=== PATIENT | female | born 1995 | race Caucasian/White ===

== ENCOUNTER 2016-07-02 11:44 | Emergency (ER) | payer MEDICAID ==
[~2016-07-02] VITALS: Ht 162.6 cm; Wt 69.9 kg
[~2016-07-02 11:44] MED LIST: METR-1 PO; PREN1CAP7 PO; TERC0.8C VAGINAL
[2016-07-02 12:48] LABS: BACTERIA, URINE OCC /hpf; BLOOD, URINE MOD (NEG); CALCIUM OXALATE CRYSTALS,URINE FEW /hpf; COMMENT (UR) CULT NOT INDICATED; CULTURE IF INDICATED CULT NOT INDICATED; GLUCOSE,URINE NEG (NEG); KETONE, URINE NEG (NEG); MUCUS URINE FEW /lpf (OCC); NITRITE,URINE NEG (NEG); PH, URINE 6.5 (5.0-8.5); SQUAMOUS EPITHELIAL CELL URINE 1 /hpf (0-5); URINE COLOR YELLOW (YELLW/STRAW)
--- NOTE | 2016-07-02 12:53 | PD ---
HPI Chief Complaint Lower abdominal Pain Date Seen: July 02, 2016 Travel History International Travel<30 Days: No Contact w/Intl Traveler<30Days: No Known Affected Area: No History of Present Illness HPI HPI: This is a 20y/o, at 33w5d who presented to the [facility] with reports of lower abdominal pain, worse when reaching and bending. She denies vaginal bleeding or leakage of fluid with reports of active movements. care at [facility], records reviewed, care complicated by: 1. late entry to care at about 30w, pt initially wanted to abort the ( High dose Vitamin C, " pill" special tea") 2. poor dentition 3. poor social situation 4. limited anatomy scan due to late gestation 5. Alcohol abuse in the beginning of the 6. "pain pills" abuse in the Para: 1 : 2 History Past Medical History Narrative Medical Asthma Obstetric History Obstetric History 02/01/15 40w Male [id number] Past Surgical History Surgical History: No Previous Surgery Family History Family History: Negative Social History Alcohol Use: Yes (during ) Tobacco Use: No Substance Abuse: No Allergies-Medications (Allergen,Severity, Reaction): Coded Allergies: No Known Allergies (Unverified , 06/15/16) Home Meds Active Scripts Terconazole Vaginal Cream 0.8 % Cream1 Appl VAGINAL HS #20 GM Ref 0 For 3 days. Prov:Emely Fletcher CNM [facility] 06/20/16 Metronidazole (Flagyl)500 Mg Rxv402 Mg PO BID #14 TAB Ref 0 Prov:Emely Fletcher CNM [facility] 06/20/16 W/O Vit A W/ Fe Fumar (Citranatal [place])27-1-260 Mg Cap1 Cap PO DAILY #30 CAP Ref 11 Prov:Emely Fletcher CNM [facility] 06/15/16 Review of Systems Except as stated in HPI: all other systems reviewed are Neg Physical Exam Narrative GENERAL: Well-nourished, well-developed patient. SKIN: Warm and dry. HEAD: Normocephalic and atraumatic. EYES: No scleral icterus. No injection or drainage. ENT: No nasal drainage noted. Mucous membranes pink. Airway patent. NECK: Supple, trachea midline. No JVD. CARDIOVASCULAR: Regular rate and rhythm without murmurs, gallops, or rubs. RESPIRATORY: Breath sounds equal bilaterally. No accessory muscle use. BREASTS: Bilateral exam showed no masses , no retractions, no nipple discharge. ABDOMEN/GI: Abdomen soft, non-tender, bowel sounds present, no rebound, no guarding Gravid to [-] weeks size Fundal Height: [-] GENITOURINARY: External Genitalia: intact and normal in appearance BUS glands: [-] Cervix: [-] Dilatation: [-] Effacement: [-] Station: [-] Presentation: [-] Membranes: [intact or ruptured] Uterine Contractions: [-] FHT's: Category: [-] Baseline: [-] Reactive: [-] Variability: [-] Decels: [-] EXTREMITIES: No cyanosis or edema. BACK: Nontender without obvious deformity. No CVA tenderness. NEUROLOGICAL: Awake and alert. Motor and sensory grossly within normal limits. Five out of 5 muscle strength in all muscle groups. Normal speech. Data Data Vital Signs Reviewed: Yes Orders Vital Signs (Adult) .ON ADMISSION (07/02/16 12:32) ^ Labor Status (07/02/16 12:32) Urinalysis - C+S If Indicated (07/02/16 12:32) ^ Non Stress Test (07/02/16 12:32) MDM Medical Record Reviewed: Yes Plan -Pt not currently consuming alcohol -only use tylenol for pain -d/w charge nurse, will obtain hospital resources for the patient Diagnosis Diagnosis: Primary Impression: UTI (urinary tract infection) in in third trimester Disposition: 01 DISCHARGE HOME Condition: Good Scripts Nitrofurantoin Monohydrate Macrocrystals (Macrobid)100 Mg Xun139 Mg PO BID 7 Days Ref 0 Prov:Libia Malone MD 07/02/16 Patient Instructions: Abdominal Pain in (ED) Libia Malone MD July 02, 2016 12:53
[2016-07-02] MEDS ORDERED: MACR100C2 PO (12:59)
[2016-07-02 14:50] LABS: AMPHETAMINE, URINE NEG (NEG); BARBITURATES, URINE NEG (NEG); COCAINE, URINE NEG (NEG)
[2016-07-02 16:58] VITALS: BP 120/67; PULSE 81; RESP 18; TEMP 98.5
[2016-07-07 11:32] LABS: BATH SALTS (MDPV) UR NEG (NEG); ECSTASY (MDMA) UR NEG (NEG); GABAPENTIN UR NEG (NEG); HEROIN (6-ACETYLMORPHINE) UR NEG (NEG); HYDROMORPHONE U NEG (NEG); K2 SPICE UR NEG (NEG); OBMETHADONE UR NEG (NEG); OXYCODONE (PERCODAN) NEG (NEG); PHENCYCLIDINE URINE NEG (NEG)
[2016-07-27] MEDS ORDERED: ACYC400T PO (11:58)
== END 2016-07-02 17:07 | disposition home or self-care (01) ==
LOC: HOBED 11:44
DX: O23.43 Unspecified infection of urinary tract in pregnancy, third trimester (principal); R10.30 Lower abdominal pain, unspecified; Z3A.33 33 weeks gestation of pregnancy
CPT/HCPCS: 80307; 81001; 99284; G0481

== ENCOUNTER 2016-07-27 13:45 | Emergency (ER) | payer MEDICAID, OTHER ==
[~2016-07-27 13:45] MED LIST changes: +ACYC400T PO; -METR-1 PO; -TERC0.8C VAGINAL
[2016-07-27 14:15] VITALS: RESP 18
--- NOTE | 2016-07-27 14:32 | PD ---
HPI Chief Complaint Decreased movement Date Seen: Jul 27, 2016 (Ana Vazquez MD R1) Travel History International Travel<30 Days: No Contact w/Intl Traveler<30Days: No Known Affected Area: No (Ana Vazquez MD R1) History of Present Illness HPI Patient is a 20 year old at 37 and 2/7 weeks gestation by certain LMP , TORI 08/15/16, who presents to the OB ED with reportedly decreased movement and office. She reports decreased movement over the last 2-3 days. She notes that she has not actually done any kick counts. [facility] care [facility] with [facility]. She is accompanied by her aunt. She denies leakage of fluid, vaginal bleeding, and contractions. She feels baby moving regularly. She denies LE/N/V/D/fever/sick contacts/SOB/calf pain/ dizziness/seeing spots. She is HSV positive. She was given acyclovir to take prophylactically, first prescription was given today so she has not started. Of note, patient was seen on 05/09/16 after attempted performed in 2015 at an unknown clinic and has a complicated social situation. IUP noted on US at bedside. Please see OB [facility] notes from 05/09/16 for details. Para: 1 : 2 Last Menstrual Period: Nov 09, 2015 (Ana Vazquez MD R1) History Past Medical History Narrative Medical HSV diagnosed in 2014, denies active lesions Medical History: Denies Significant Hx (Ana Vazquez MD R1) Obstetric History Obstetric History G1: January 2015, male, 8 pounds 12-1/2 ounces, 40 and 2/7 weeks gestation G2: Current. Patient states that she try to abort this fetus at an unknown clinic with 4 pills in December 2015 Initial lab date: June 22, 2016 Blood type: B D (Rh) Type: Negative Antibody screen: negative Rubella: Not immune VDRL: negative Urine screen: Normal HBsAg: negative HIV: negative Chlamydia: negative Gonorrhea: negative TSH: 1.72 Varicella: Negative Visit date: June 22, 2016 Diabetes screen - 1-hr GGT: 133 HIV: Negative Hepatitis B: Negative Visit date: July 12, 2016 Beta strep culture: negative (Ana Vazquez MD R1) Past Surgical History Surgical History: No Previous Surgery (Ana Vazquez MD R1) Family History Narrative Family History Noncontributory (Ana Vazquez MD R1) Social History Alcohol Use: Yes (in first trimester, reportedly last use was in late 2015) Tobacco Use: No Substance Abuse: No (Ana Vazquez MD R1) Allergies-Medications (Allergen,Severity, Reaction): Coded Allergies: No Known Allergies (Unverified , 07/27/16) Home Meds Active Scripts Acyclovir 400 Mg Eud551 Mg PO BID #60 TAB Ref 3 Prov:Shahrzad Anaya ELECTRICAL DISCHARGE MACHINE OPERATOR 07/27/16 W/O Vit A W/ Fe Fumar (Citranatal [place])27-1-260 Mg Cap1 Cap PO DAILY #30 CAP Ref 11 Prov:Emely Fletcher CNM [facility] 06/15/16 Review of Systems Except as stated in HPI: all other systems reviewed are Neg (Ana Vazquez MD R1) Physical Exam BP 100/64, pulse 107, no other VS available Narrative GENERAL: Well-nourished, well-developed female in no apparent distress. SKIN: Warm and dry. No rashes noted. HEAD: Normocephalic and atraumatic. EYES: No scleral icterus. No injection or drainage. ENT: No nasal drainage noted. Mucous membranes pink. Airway patent. NECK: Supple, trachea midline. No JVD. CARDIOVASCULAR: Regular rate and rhythm without murmurs, gallops, or rubs. RESPIRATORY: Breath sounds equal bilaterally. No accessory muscle use. ABDOMEN/GI: Abdomen soft, non-tender, bowel sounds present, no rebound, no guarding Gravid to approximately 35 week size GENITOURINARY: External Genitalia: intact and normal in appearance. There are no evidence of herpetic or other lesions. There is no erythema. Bimanual exam reveals no lesions palpated. Cervix: 3/50%/-2, soft, posterior Presentation: Vertex Membranes: Intact Uterine Contractions: Absent FHT's: Category: 1 Baseline:140 Reactive: yes, to 160 Variability: mod Decels: absent EXTREMITIES: No cyanosis or edema. BACK: Nontender without obvious deformity. No CVA tenderness. NEUROLOGICAL: Awake and alert. Motor and sensory grossly within normal limits. Five out of 5 muscle strength in all muscle groups. Normal speech. (Ana Vazquez MD R1) Data Data Vital Signs Reviewed: Yes Orders Vital Signs (Adult) .ON ADMISSION (07/27/16 14:26) ^ Labor Status (07/27/16 14:26) Urinalysis - C+S If Indicated (07/27/16 14:26) ^ Non Stress Test (07/27/16 14:26) ^ Hydration (07/27/16 14:26) (Ana Vazquez MD R1) MDM Medical Record Reviewed: Yes Narrative Course / MDM 20-year-old female at 37 and 2/7 weeks gestation today. She presented from our office due to decreased movement. -NST -If normal will discharge home -Educate on kick counts -[facility] Plan Discharge from after normal NST (Ana Vazquez MD R1) Diagnosis Diagnosis: Primary Impression: with 37 weeks completed gestation Disposition: 01 DISCHARGE HOME Condition: Stable Patient Instructions: Movement (ED), Early Labor Signs (ED) Attestation Patient seen at bedside. movement counts d/w patient. No complaints. Reports movement prior to discharge. Labor precautions. Keep next scheduled f/u. (Edelmira Ruggiero MD) Ana Vazquez MD R1 Jul 27, 2016 14:32 Edelmira Ruggiero MD Jul 27, 2016 16:05
[2016-07-27 15:43] VITALS: TEMP 98.1
== END 2016-07-27 16:02 | disposition home or self-care (01) ==
LOC: HOBED 13:45
DX: O36.8130 Decreased fetal movements, third trimester, not applicable or unspecified (principal); Z3A.37 37 weeks gestation of pregnancy
CPT/HCPCS: 59025

== ENCOUNTER 2016-07-28 08:26 | Inpatient (IN) | payer MEDICAID, OTHER ==
[2016-07-28] VITALS (49 sets, daily range): BP systolic 74–124; BP diastolic 30–88; PULSE 65–124; RESP 16–20; TEMP 97.7–98.6; O2SAT 100
[2016-07-28] MEDS ORDERED: LACTATED RINGER'S 1000 ML INJ 1,000 ML IV PRN (08:53)
[2016-07-28] MEDS ORDERED: LACTATED RINGER'S 1000 ML INJ 1,000 ML IV SCH (08:53)
--- NOTE | 2016-07-28 08:58 | PD ---
HPI Chief Complaint Gush of fluid this morning Date Seen: Jul 28, 2016 Time Seen: 08:37 (Ana Vazquez MD R1) Travel History International Travel<30 Days: No Contact w/Intl Traveler<30Days: No Known Affected Area: No (Ana Vazquez MD R1) History of Present Illness HPI Patient is a 20 year old at 37 and 3/7 weeks gestation by certain LMP , TORI 08/15/16, who presents to the OB ED with reportedly waking up with a large amount of fluid on her bed at approx 0630 today. OB care is with [facility]. She is accompanied by her aunt. She was seen yesterday 07/27/16 for reported decreased movement, normal NST was obtained and patient was discharged home with counseling. She denies vaginal bleeding and contractions. She feels baby moving regularly. She denies LE/N/V/D/fever/sick contacts/SOB/calf pain/dizziness/seeing spots. She is HSV positive. She was given acyclovir to take prophylactically, has not started prophylaxis, denies current outbreak. Of note, patient was seen on 05/09/16 after attempted performed in 2015 at an unknown clinic and has a complicated social situation. IUP noted on US at bedside. Please see OB [facility] notes from 05/09/16 for details. ( Ana Vazquez MD R1) History Past Medical History Narrative Medical HSV diagnosed 2014, not on acyclovir, not reporting active lesions (Ana Vazquez MD R1) Obstetric History Obstetric History G1: January 2015, male, 8 pounds 12-1/2 ounces, 40 and 2/7 weeks gestation G2: Current. Patient states that she try to abort this fetus at an unknown clinic with 4 pills in December 2015 Initial lab date: June 22, 2016 Blood type: B D (Rh) Type: Negative Antibody screen: negative Rubella: Not immune VDRL: negative Urine screen: Normal HBsAg: negative HIV: negative Chlamydia: negative Gonorrhea: negative TSH: 1.72 Varicella: Negative Visit date: June 22, 2016 Diabetes screen - 1-hr GGT: 133 HIV: Negative Hepatitis B: Negative Visit date: July 12, 2016 Beta strep culture: negative (Ana Vazquez MD R1) Past Surgical History Surgical History: No Previous Surgery (Ana Vazquez MD R1) Family History Narrative Family History Noncontributory (Ana Vazquez MD R1) Social History Alcohol Use: Yes (in first trimester, reportedly last use was in late 2015) Tobacco Use: No Substance Abuse: No (Ana Vazquez MD R1) Allergies-Medications (Allergen,Severity, Reaction): Coded Allergies: No Known Allergies (Unverified , 07/27/16) Home Meds Active Scripts Acyclovir 400 Mg Imw900 Mg PO BID #60 TAB Ref 3 Prov:Shahrzad Anaya LOCAL ANNOUNCER 07/27/16 W/O Vit A W/ Fe Fumar (Citranatal [place])27-1-260 Mg Cap1 Cap PO DAILY #30 CAP Ref 11 Prov:Emely Fletcher CNM [facility] 06/15/16 Review of Systems Except as stated in HPI: all other systems reviewed are Neg (Ana Vazquez MD R1) Physical Exam Narrative GENERAL: Well-nourished, well-developed female in no apparent distress. SKIN: Warm and dry. No rashes noted. HEAD: Normocephalic and atraumatic. EYES: No scleral icterus. No injection or drainage. ENT: No nasal drainage noted. Mucous membranes pink. Airway patent. NECK: Supple, trachea midline. No JVD. CARDIOVASCULAR: Regular rate and rhythm without murmurs, gallops, or rubs. RESPIRATORY: Breath sounds equal bilaterally. No accessory muscle use. ABDOMEN/GI: Abdomen soft, non-tender, bowel sounds present, no rebound, no guarding Gravid to approximately 35 week size GENITOURINARY: External Genitalia: intact and normal in appearance. There are no evidence of herpetic or other lesions. There is no erythema. Bimanual exam reveals no lesions palpated. Cervix: 4/50%/-3, soft, posterior, clear fluid in vaginal vault Presentation: Vertex Membranes: ROM, Amnisure positive Uterine Contractions: Absent FHT's: Category: 1 Baseline:150 Reactive: yes, to 165 Variability: mod Decels: absent EXTREMITIES: No cyanosis or edema. BACK: Nontender without obvious deformity. No CVA tenderness. NEUROLOGICAL: Awake and alert. Motor and sensory grossly within normal limits. Five out of 5 muscle strength in all muscle groups. Normal speech. (Ana Vazquez MD R1) Data Data Vital Signs Reviewed: Yes (BP 99/53, P124, RR 16, temp 98.1F) (Ana Vazquez MD R1) MDM Medical Record Reviewed: Yes Narrative Course / MDM 20-year-old female at 37 and 3/7 weeks gestation who presents with SROM at 0630 on 07/28/16. Amnisure positive, clear vaginal fluid on exam. We will admit to L&D for labor. Intrauterine : Category 1 tracing Vaginal delivery expected SROM at 0630 Will monitor on continuous toco and FHT, start Pitocin as indicated Epidural is desired for pain CBC, UA ordered in addition to type and screen and blood typing IV fluids per routine Monitor heart tones Routine care GBS negative HSV positive No current outbreaks No prophylaxis given this DW Dr. Ruggiero (Ana Vazquez MD R1) Attestation Patient seen and examined. Agree with resident's assessment and plan. (Edelmira Ruggiero MD) Ana Vazquez MD R1 Jul 28, 2016 08:58 Edelmira Ruggiero MD Jul 28, 2016 09:39
[2016-07-28] MEDS ORDERED: SODIUM CHLORID 0.9% 500 ML INJ 500 ML IV PRN (09:00)
[2016-07-28] MEDS ORDERED: OXYTOCIN 30 UNITS-500ML PREMIX 500 ML IV ONE ×2 (09:00→18:45)
[2016-07-28] MEDS ORDERED: ONDANSETRON HCL 4 MG/2 ML VIAL IV PRN (09:00)
[2016-07-28] MEDS ORDERED: MINERAL OIL 10 ML VIAL TOPICAL PRN (09:00)
[2016-07-28] MEDS ORDERED: CITRIC ACID-SODIUM CITRATE LIQ 30 ML UDC PO SCH (09:00)
[2016-07-28] MEDS ORDERED: LIDOCAINE HCL 1% 50 ML VIAL INFIL PRN (09:00)
[2016-07-28] MEDS ORDERED: LIDOCAINE HCL 1% 50 ML VIAL I-DERMAL PRN (09:00)
--- NOTE | 2016-07-28 09:05 | HHI.HP ---
HPI Chief Complaint SROM at 0630 on 07/28/16 Date Seen: Jul 28, 2016 Time Seen: 09:01 (Ana Vazquez MD R1) Travel History International Travel<30 Days: No Contact w/Intl Traveler<30Days: No Known Affected Area: No (Ana Vazquez MD R1) History of Present Illness HPI Patient is a 20 year old at 37 and 3/7 weeks gestation by certain LMP , TORI 08/15/16, who presents to the OB ED with reportedly waking up with a large amount of fluid on her bed at approx 0630 today. [facility] care is with [facility]. She is accompanied by her aunt. She was seen yesterday 07/27/16 for reported decreased movement, normal NST was obtained and patient was discharged home with counseling. She denies vaginal bleeding and contractions. She feels baby moving regularly. She denies LE/N/V/D/fever/sick contacts/SOB/calf pain/dizziness/seeing spots. She is HSV positive. She was given acyclovir to take prophylactically, has not started prophylaxis, denies current outbreak. Of note, patient was seen on 05/09/16 after attempted performed in 2015 at an unknown clinic and has a complicated social situation. IUP noted on US at bedside. Please see OB [facility] notes from 05/09/16 for details. Para: 1 : 2 Last Menstrual Period: Nov 08, 2016 (Ana Vazuqez MD R1) History Past Medical History Narrative Medical HSV diagnosed 2014, not on acyclovir, not reporting active lesions History of asthma, not on albuterol (last use over one year ago) (Ana Vazquez MD R1) Obstetric History Obstetric History G1: January 2015, male, 8 pounds 12-1/2 ounces, 40 and 2/7 weeks gestation G2: Current. Patient states that she try to abort this fetus at an unknown clinic with 4 pills in December 2015 Initial lab date: June 22, 2016 Blood type: B D (Rh) Type: Negative Antibody screen: negative Rubella: Not immune VDRL: negative Urine screen: Normal HBsAg: negative HIV: negative Chlamydia: negative Gonorrhea: negative TSH: 1.72 Varicella: Negative Visit date: June 22, 2016 Diabetes screen - 1-hr GGT: 133 HIV: Negative Hepatitis B: Negative Visit date: July 12, 2016 Beta strep culture: negative (Ana Vazquez MD R1) Past Surgical History Surgical History: No Previous Surgery (Ana Vazquez MD R1) Family History Narrative Family History Noncontributory (Ana Vazquez MD R1) Social History Alcohol Use: Yes (reported last use in late 2015) Tobacco Use: No Substance Abuse: No (Ana Vazquez MD R1) Allergies-Medications (Allergen,Severity, Reaction): Coded Allergies: No Known Allergies (Unverified , 07/27/16) Home Meds Active Scripts Acyclovir 400 Mg Bby952 Mg PO BID #60 TAB Ref 3 Prov:Shahrzad Anaya CUT OUT STITCHER 07/27/16 W/O Vit A W/ Fe Fumar (Citranatal [place])27-1-260 Mg Cap1 Cap PO DAILY #30 CAP Ref 11 Prov:Emely Fletcher CNM [employer] 06/15/16 Review of Systems Except as stated in HPI: all other systems reviewed are Neg (Ana Vazquez MD R1) Physical Exam Vital Signs Date Time Temp Pulse Resp B/P Pulse Ox O2 Delivery O2 Flow Rate FiO2 07/28/16 08:41 124 16 99/53 07/28/16 08:41 98.1 Narrative GENERAL: Well-nourished, well-developed female in no apparent distress. SKIN: Warm and dry. No rashes noted. HEAD: Normocephalic and atraumatic. EYES: No scleral icterus. No injection or drainage. ENT: No nasal drainage noted. Mucous membranes pink. Airway patent. Significant dental caries noted on multiple teeth, no signs of gum infection NECK: Supple, trachea midline. No JVD. CARDIOVASCULAR: Regular rate and rhythm without murmurs, gallops, or rubs. RESPIRATORY: Breath sounds equal bilaterally. No accessory muscle use. ABDOMEN/GI: Abdomen soft, non-tender, bowel sounds present, no rebound, no guarding Gravid to approximately 35 week size GENITOURINARY: External Genitalia: intact and normal in appearance. There are no evidence of herpetic or other lesions. There is no erythema. Bimanual exam reveals no lesions palpated. Cervix: 4/50%/-3, soft, posterior, clear fluid in vaginal vault Presentation: Vertex Membranes: ROM, Amnisure positive Uterine Contractions: Absent FHT's: Category: 1 Baseline:150 Reactive: yes, to 165 Variability: mod Decels: absent EXTREMITIES: No cyanosis or edema. BACK: Nontender without obvious deformity. No CVA tenderness. NEUROLOGICAL: Awake and alert. Motor and sensory grossly within normal limits. Five out of 5 muscle strength in all muscle groups. Normal speech. (Ana Vazquez MD R1) Data Data Vital Signs Reviewed: Yes (BP 99/53, P124, RR 16, temp 98.1F) Orders Vital Signs (Adult) .ON ADMISSION (07/28/16 08:38) ^ Labor Status (07/28/16 08:38) ^ Non Stress Test (07/28/16 08:38) ^ Hydration (07/28/16 08:38) Ob (2e) Additional Admit Info (07/28/16 08:46) Admit To Inpatient (07/28/16 ) Code Status (07/28/16 08:53) Vital Signs (Adult) .Per protocol (07/28/16 08:53) Activity Oob Ad Jo (07/28/16 08:53) Heart (07/28/16 08:53) Amnioinfusion (07/28/16 08:53) Urinary Catheter Management .ONCE (07/28/16 08:53) Diet Liquid (07/28/16 Breakfast) Lactated Ringer's 1000 Ml Inj (Lr 1000 M (07/28/16 08:53) Lactated Ringer's 1000 Ml Inj (Lr 1000 M (07/28/16 08:53) Sodium Chlorid 0.9% 500 Ml Inj (Ns 500 M (07/28/16 09:00) Sodium Chlor 0.9% 1000 Ml Inj (Ns 1000 M (07/28/16 09:13) Lidocaine 1% Inj (50 Ml) (Xylocaine 1% I (07/28/16 09:00) Citric Acid-Sodium Citrate Liq (Bicitra (07/28/16 09:00) Ondansetron Inj (Zofran Inj) (07/28/16 09:00) Fentanyl Inj (Fentanyl Inj) (07/28/16 09:00) Fentanyl Inj (Fentanyl Inj) (07/28/16 09:00) Complete Blood Count With Diff (07/28/16 08:53) Hold Clot (07/28/16 08:53) Abo/Rh Blood Type (07/28/16 08:53) Urinalysis - C+S If Indicated (07/28/16 08:53) Type And Screen (07/28/16 08:53) Resp Oxygen Non Rebreathe Mask (07/28/16 ) ^ Epidural / Intrathecal Infus (07/28/16 08:53) Oxytocin 30 Units-500ml Premix (Pitocin (07/28/16 09:00) Lidocaine 1% Inj (50 Ml) (Xylocaine 1% I (07/28/16 09:00) Light Mineral Oil (Muri-Lube Oil) (07/28/16 09:00) Inpatient Certification (07/28/16 ) Specimen To Be Collected PRN (07/28/16 08:53) (Ana Vazquez MD R1) Assessment/Plan Problem List: (1) with 37 weeks completed gestation (2) Rupture of membranes with clear amniotic fluid (3) HSV-2 infection complicating (4) Dental caries (5) History of asthma Assessment and Plan 20-year-old female at 37 and 3/7 weeks gestation who presents with SROM at 0630 on 07/28/16. Amnisure positive, clear vaginal fluid on exam. We will admit to L&D for labor. Intrauterine : Category 1 tracing Vaginal delivery expected SROM at 0630 Will monitor on continuous toco and FHT, start Pitocin as indicated Epidural is desired for pain CBC, UA ordered in addition to type and screen and blood typing IV fluids per routine Monitor heart tones Routine care GBS negative HSV positive No current outbreaks No prophylaxis given this History of asthma No use of albuterol in over 1 year Will monitor DW Dr. Ruggiero Discharge Planning 1-2 days after normal vaginal delivery, 2-3 days after delivery if indicated (Ana Vazquez MD R1) Attending Attestation Patient seen and examined. Plan and management d/w patient. All questions answered. (Edelmira Ruggiero MD) Ana Vazquez MD R1 Jul 28, 2016 09:05 Edelmira Ruggiero MD Jul 28, 2016 09:38
[2016-07-28] MEDS ORDERED: SODIUM CHLOR 0.9% 1000 ML INJ 1,000 ML IV PRN (09:13)
[2016-07-28 09:56] LABS: BLOOD, URINE NEG (NEG); COMMENT (UR) CULT NOT INDICATED; CULTURE IF INDICATED CULT NOT INDICATED; GLUCOSE,URINE NEG (NEG); KETONE, URINE NEG (NEG); NITRITE,URINE NEG (NEG); SQUAMOUS EPITHELIAL CELL URINE <1 /hpf (0-5); URINE COLOR YELLOW (YELLW/STRAW)
[2016-07-28 10:27] LABS: AUTOMATED NEUTROPHIL # 8.7 TH/MM3 (1.8-7.7); BASOPHIL % 0.3 % (0.0-2.0); EOSINOPHIL # 0.1 TH/MM3 (0-0.4); EOSINOPHIL % 0.6 % (0.0-4.0); HEMATOCRIT 34.2 % (35.0-46.0); HEMO FLAGS DIFF FINAL; LYMPH % 22.7 % (9.0-44.0); LYMPHOCYTE # 2.8 TH/MM3 (1.0-4.8); MEAN CELL VOLUME 92.7 FL (80.0-100.0); MEAN CORPUSCULAR HEMOGLOBIN 31.5 PG (27.0-34.0); MEAN CORPUSCULAR HGB CONC 33.9 % (32.0-36.0); MONO % 5.4 % (0.0-8.0); PLATELET COUNT 233 TH/MM3 (150-450); RED BLOOD COUNT 3.69 MIL/MM3 (4.00-5.30); RED CELL DISTRIBUTION WIDTH 12.6 % (11.6-17.2); WHITE BLOOD COUNT 12.2 TH/MM3 (4.0-11.0)
[2016-07-28] MEDS ORDERED: OXYTOCIN 30 UNITS-500ML PREMIX 500 ML IV SCH (10:30)
--- NOTE | 2016-07-28 13:56 | PD.LABORPN ---
Subjective Subjective Patient was evaluated at bedside. She is feeling some ctx but they are not uncomfortable and she is not yet interested in epidural. Pitocin now on 6mU/ min. No new symptoms or complaints. (Ana Vazquez MD R1) Objective Vital Signs Vital Signs Date Time Temp Pulse Resp B/P Pulse Ox O2 Delivery O2 Flow Rate FiO2 07/28/16 13:13 71 99/57 07/28/16 13:00 74 74/30 07/28/16 12:57 97.7 07/28/16 12:56 73 98/57 07/28/16 12:55 16 07/28/16 12:36 16 07/28/16 12:30 76 101/61 07/28/16 12:26 74 108/58 07/28/16 12:10 16 07/28/16 11:49 18 07/28/16 11:48 78 101/63 07/28/16 09:49 98.0 07/28/16 09:48 20 07/28/16 09:48 94 104/64 07/28/16 08:41 124 16 99/53 07/28/16 08:41 98.1 Objective Pelvic Exam: Cervix: 4-5/50%/-3 Presentation: vertex Membranes: SROM @ 0630 on 07/28/16 Uterine Contractions: q3-4min FHT's: Category: 1 Baseline: 140 Reactive: y to 155 Variability: mod Decels: absent (Ana Vazquez MD R1) Assessment/Plan Problem List: (1) with 37 weeks completed gestation (2) Rupture of membranes with clear amniotic fluid (3) HSV-2 infection complicating (4) Dental caries (5) History of asthma Assessment and Plan 20-year-old female at 37 and 3/7 weeks gestation who presents with SROM at 0630 on 07/28/16. Amnisure positive, clear vaginal fluid on exam. We will admit to L&D for labor. Intrauterine : Category 1 tracing Vaginal delivery expected SROM at 0630 Will monitor on continuous toco and FHT Continue Pitocin at 03/24/29 Epidural is desired for pain CBC, UA unremarkable Blood type is B negative IV fluids per routine Monitor heart tones Routine care GBS negative HSV positive No current outbreaks No prophylaxis given this History of asthma No use of albuterol in over 1 year Will monitor (Ana Vazquez MD R1) Assessment and Plan PROM @ 37 weeks GBS negative CAT I FHT Pitocin augmentation decline pain medication/epidural at this time (Maryjane Sanderson MD) Ana Vazquez MD R1 Jul 28, 2016 13:56 Maryjane Sanderson MD Jul 28, 2016 17:34
[2016-07-28] MEDS ORDERED: MEASLES, MUMPS, RUBELLA VACCINE 0.5 ML VIAL SQ ONE (16:00)
[2016-07-28] MEDS ORDERED: DIPHTH/TETANUS/ACEL PERTUSSIS (BOOSTER) 0.5 ML VIAL/PFS IM ONE (16:00)
[2016-07-28] MEDS ORDERED: fentaNYL 2MCG-BUPIV 0.125% INJ 100 ML ONE (16:15)
[2016-07-28] MEDS ORDERED: ePHEDrine/NS 25 MG/5 ML SYR ONE (16:15)
--- NOTE | 2016-07-28 16:43 | PD.LABORPN ---
Subjective Subjective Patient was evaluated at bedside and is uncomfortable during her ctx. She wants an epidural. Pitocin now on 12mU/min. (Ana Vazquez MD R1) Objective Vital Signs Vital Signs Date Time Temp Pulse Resp B/P Pulse Ox O2 Delivery O2 Flow Rate FiO2 07/28/16 15:33 97.8 83 18 89/54 07/28/16 15:30 78 100 07/28/16 15:01 75 100/56 07/28/16 15:00 86 07/28/16 15:00 81 07/28/16 14:19 116 124/88 07/28/16 14:18 16 07/28/16 13:13 71 99/57 07/28/16 13:00 74 74/30 07/28/16 12:57 97.7 07/28/16 12:56 73 98/57 07/28/16 12:55 16 07/28/16 12:36 16 07/28/16 12:30 76 101/61 07/28/16 12:26 74 108/58 07/28/16 12:10 16 07/28/16 11:49 18 07/28/16 11:48 78 101/63 07/28/16 09:49 98.0 07/28/16 09:48 20 07/28/16 09:48 94 104/64 07/28/16 08:41 124 16 99/53 07/28/16 08:41 98.1 Objective Pelvic Exam: Cervix: 5/80%/0 Presentation: vertex Membranes: SROM @ 0630 on 07/28/16 Uterine Contractions: q3-4min, getting epidural FHT's: Category: 2 Baseline: 130 Reactive: y to 155 Variability: mod Decels: occasional variable (Ana Vazquez MD R1) Assessment/Plan Problem List: (1) with 37 weeks completed gestation Plan: 20-year-old female at 37 and 3/7 weeks gestation admitted to L&D for labor after SROM at home (0630 on 07/28/16) Intrauterine : Amnisure positive Category 1 tracing Vaginal delivery expected SROM at 0630 on 07/28/16, no clear fluid Will monitor on continuous toco and FHT Continue Pitocin at 03/24/29 Epidural being placed now CBC, UA unremarkable Blood type is B negative IV fluids per routine Monitor heart tones Routine care GBS negative HSV positive No current outbreaks No prophylaxis given this History of asthma No use of albuterol in over 1 year Will monitor (2) Rupture of membranes with clear amniotic fluid (3) HSV-2 infection complicating (4) Dental caries (5) History of asthma (Ana Vazquez MD R1) Assessment and Plan PROM @ 37 weeks Pitocin augmentation Patient uncomfortable with UC, requests epidural SVE 5-6/80/0 CAT I FHT Continue current management. (Maryjane Sanderson MD) Ana Vazquez MD R1 Jul 28, 2016 16:43 Maryjane Sanderson MD Jul 28, 2016 17:35
--- NOTE | 2016-07-28 17:26 | PD.OB.DELI ---
Anesthesia: Epidural (apply ) Episiotomy: None Vaginal Delivery: Normal Presentation: Occiput anterior Nuchal Cord: x1 Delayed cord clamping (45 sec): No Infant: Female One Minute : 8 Five Minute : 9 Weight: 6lb 10z Placenta: Spontaneous delivery, Intact, 3 vessel cord Laceration: No lacerations (superficial vaginal wall scrapes) Additional Information 20 y/o now P2 experienced over intact perineum on 07/28/16. The 's head was delivered in a controlled manner. Amniotic fluid was clear. Nuchal cord x 1 was noted. The 's body was then delivered in the usual manner without difficulty. The cord was clamped and cut. The infant was handed to nursein attendance. The placenta delivered intact with 3VC followed by 30 units of Pitocin IV and uterine massage for hemostasis. EBL= 150cc. The cervix and vagina were inspected for lacs and none were noted. The , viable female with Apgars 8/9 and weight g was left in mother's room in stable condition. Average EBL for is 500cc. Attending physician was Dr. Sanderson who was present and scrubbed in for entire delivery. (Ana Vazquez MD R1) Weight: 3005g Additional Information @ 37 weeks with PROM, clear fluid at term. Pitocin augmented. Epidural for anesthesia. Uncomplicated with nuchal x 1, reduced. Placenta spontaneous, intact and grossly normal. EBL 150ml. No lacerations for repair. (Maryjane Sanderson MD) Ana Vazquez MD R1 Jul 28, 2016 17:26 Maryjane Sanderson MD Jul 28, 2016 17:37
[2016-07-28] MEDS ORDERED: BENZOCAINE 20% TOPICAL SPRAY 60 ML CAN TOPICAL PRN (17:30)
[2016-07-28] MEDS ORDERED: ONDANSETRON ODT 4 MG TAB PO PRN (17:30)
[2016-07-28] MEDS ORDERED: DOCUSATE SODIUM 50 MG/SENNA 8.6 MG TAB PO PRN (17:30)
[2016-07-28] MEDS ORDERED: SODIUM CHLORIDE 0.9% FLUSH 10 ML FLUSH IV FLUSH PRN (17:30)
[2016-07-28] MEDS ORDERED: ALUMINUM/MAGNESIUM/SIMETH 30 ML CUP PO PRN (17:30)
[2016-07-28] MEDS ORDERED: WITCH HAZEL 50%/GLYCERIN 12.5% 40 PAD JAR TOPICAL PRN (17:30)
[2016-07-28] MEDS ORDERED: OXYTOCIN 30 UNITS-500ML PREMIX 500 ML ONE (18:33)
[2016-07-28] MEDS: IBUPROFEN 600 MG TAB PO PRN (18:50)
--- NOTE | 2016-07-28 19:41 | HHI.PR ---
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 Patient had not voided. Straight cath with 1000ml of urine Second bag of Pitocin given Re-examined - RN stated noted clot on pad Uterus remains firm @ U-2 continue observation, Cytotec if any further bleeding Maryjane Sanderson MD Jul 28, 2016 19:41
[2016-07-28] MEDS ORDERED: SODIUM CHLORIDE 0.9% FLUSH 10 ML FLUSH IV FLUSH SCH (21:00)
[2016-07-29] MEDS: ACETAMINOPHEN 325 MG TAB PO PRN ×3 (06:15→22:49)
[2016-07-29 07:08] LABS: AUTOMATED NEUTROPHIL # 10.7 TH/MM3 (1.8-7.7); BASOPHIL # 0.1 TH/MM3 (0-0.2); BASOPHIL % 0.5 % (0.0-2.0); EOSINOPHIL # 0.1 TH/MM3 (0-0.4); EOSINOPHIL % 0.7 % (0.0-4.0); HEMATOCRIT 33.3 % (35.0-46.0); HEMO FLAGS DIFF FINAL; LYMPH % 25.2 % (9.0-44.0); MEAN CELL VOLUME 92.7 FL (80.0-100.0); MEAN CORPUSCULAR HEMOGLOBIN 31.6 PG (27.0-34.0); MEAN CORPUSCULAR HGB CONC 34.1 % (32.0-36.0); NEUT % 66.6 % (16.0-70.0); PLATELET COUNT 212 TH/MM3 (150-450); RED BLOOD COUNT 3.59 MIL/MM3 (4.00-5.30); RED CELL DISTRIBUTION WIDTH 12.3 % (11.6-17.2)
--- NOTE | 2016-07-29 07:08 | HHI.OB ---
Subjective Post Day: 1 Remarks day # 1. AFVSS overnight. She had post- increased bleeding approximate 1730pm, several clots expressed. Patient had not voided so straight cath was placed and 1L urine noted , which was likely etiology. Second bag of Pitocin given and exam was thereafter notable for firm uterus. Patient does note moderate bleeding this morning, like a period. Denies dysuria. No breast tenderness. She is feeding the baby via breast. Appetite good. No nausea or vomiting. Positive flatus/bowel movement. Ambulating well. Denies calf pain or shortness of breath. Otherwise, she is doing well this morning and has no other complaints. (Ana Vazquez MD R1) Objective Vitals/I&O Vital Signs Date Time Temp Pulse Resp B/P Pulse Ox O2 Delivery O2 Flow Rate FiO2 07/28/16 22:21 98.0 68 16 99/59 07/28/16 20:00 72 113/56 07/28/16 19:45 86 109/53 07/28/16 19:30 75 104/51 07/28/16 19:15 65 109/64 07/28/16 19:00 66 103/68 07/28/16 18:45 84 110/65 07/28/16 18:42 98.6 85 106/73 07/28/16 18:41 18 07/28/16 18:30 72 07/28/16 18:30 18 07/28/16 18:15 72 102/49 07/28/16 18:01 75 18 100/53 07/28/16 17:47 18 07/28/16 17:45 78 108/62 07/28/16 17:45 18 07/28/16 17:30 84 105/65 07/28/16 17:26 90 110/76 07/28/16 16:59 109/59 07/28/16 16:59 83 07/28/16 16:55 97 07/28/16 16:53 101 120/67 07/28/16 16:50 105 07/28/16 16:45 101 07/28/16 16:40 103 07/28/16 16:39 95 100/53 07/28/16 16:35 87 07/28/16 16:30 95 07/28/16 16:25 91 07/28/16 16:20 84 07/28/16 16:17 81 101/57 07/28/16 16:15 78 07/28/16 15:33 97.8 83 18 89/54 07/28/16 15:30 78 100 07/28/16 15:01 75 100/56 07/28/16 15:00 86 07/28/16 15:00 81 07/28/16 14:19 116 124/88 07/28/16 14:18 16 07/28/16 13:13 71 99/57 07/28/16 13:00 74 74/30 07/28/16 12:57 97.7 07/28/16 12:56 73 98/57 07/28/16 12:55 16 07/28/16 12:36 16 07/28/16 12:30 76 101/61 07/28/16 12:26 74 108/58 07/28/16 12:10 16 07/28/16 11:49 18 07/28/16 11:48 78 101/63 07/28/16 09:49 98.0 07/28/16 09:48 20 07/28/16 09:48 94 104/64 07/28/16 08:41 124 16 99/53 07/28/16 08:41 98.1 Objective Remarks GENERAL: Well-nourished, well-developed female in no apparent distress. CARDIOVASCULAR: Regular rate and rhythm without murmurs, gallops, or rubs. RESPIRATORY: Breath sounds equal bilaterally. No accessory muscle use. ABDOMEN/GI: Abdomen soft, non-tender. Fundus: Firm, non-tender at umbilicus. GENITOURINARY: Light to moderate bleeding. EXTREMITIES: No cyanosis or edema, non-tender, without signs of DVT. Medications and IVs Current Medications Medications (Trade) Dose Ordered Sig/Freddy Route Start Time Stop Time Status Last Admin (NS Flush) 2 ml BID IV FLUSH 07/28/16 21:00 (NS Flush) 2 ml UNSCH PRN IV FLUSH 07/28/16 17:30 (Tylenol) 650 mg Q4H PRN PO 07/28/16 17:30 07/29/16 06:15 (Motrin) 600 mg Q6H PRN PO 07/28/16 17:30 07/28/16 18:50 (Americaine 20% Top Spr) 1 spray Q4H PRN TOPICAL 07/28/16 17:30 (Tucks Pads) 1 applic QID PRN TOPICAL 07/28/16 17:30 (Jennifer-Colace) 2 tab Q12H PRN PO 07/28/16 17:30 (Mag-Al Plus Susp Liq) 15 ml Q8H PRN PO 07/28/16 17:30 (Zofran Odt) 4 mg Q6H PRN PO 07/28/16 17:30 (Ana Vazquez MD R1) Assessment/Plan Problem List: (1) Term delivered vaginally, current hospitalization Plan: 20-year-old female who is PPD #1 after . Intrauterine , delivered by -Continue routine care. -Tylenol and Motrin PRN pain. -Encouraged OOB. Advised pelvic rest for 6 wks. -Re: ctrl, she would like Mirena vs. Nexplanon at 6 weeks -D/c likely tomorrow (2) HSV-2 infection complicating Plan: No current outbreaks No prophylaxis given this (3) Dental caries (4) History of asthma Plan: No use of albuterol in over 1 year Will monitor Assessment and Plan DW Dr. Sanderson Discharge Planning 1-2 days after normal vaginal delivery, 2-3 days after delivery if indicated (Ana Vazquez MD R1) Attending Attestation PPD #1 s/p Doing well Tylenol and Motrin for cramping/pain No further bleeding, hgb unchanged. continue PP care and observation anticipate d/c in am Patient seen and examined. D/w Dr. Prince and Dr. Vazquez. (Maryjane Sanderson MD) Ana Vazquez MD R1 Jul 29, 2016 07:07 Maryjane Sanderson MD Jul 29, 2016 08:20 HSV positive No current outbreaks No prophylaxis given this History of asthma No use of albuterol in over 1 year Will monitor DW Dr. Ruggiero Discharge Planning 1-2 days after normal vaginal delivery, 2-3 days after delivery if indicated Ana Vazquez MD R1 Jul 29, 2016 07:07
[2016-07-29 09:00] VITALS: BP 91/55; PULSE 64; RESP 20; TEMP 97.4
[2016-07-29 19:33] VITALS: BP 88/57; PULSE 77; RESP 17; TEMP 97.6
--- NOTE | 2016-07-30 07:39 | HHI.OB ---
Subjective Post Day: 2 Remarks day # 2. AFVSS overnight. Pain control. Decreased lochia. Denies dysuria. No breast tenderness. She is feeding the baby via breast. Appetite good. No nausea or vomiting. Positive flatus. Negative bowel movement. Ambulating well. Denies calf pain, shortness of breath, or cough. Otherwise, she is doing well this morning and has no other complaints. Objective Vitals/I&O Vital Signs Date Time Temp Pulse Resp B/P Pulse Ox O2 Delivery O2 Flow Rate FiO2 07/29/16 19:33 97.6 17 07/29/16 19:33 77 88/57 07/29/16 09:00 91/55 07/29/16 09:00 97.4 64 20 Objective Remarks GENERAL: Well-nourished, well-developed female in no apparent distress. CARDIOVASCULAR: Regular rate and rhythm without murmurs, gallops, or rubs. RESPIRATORY: Breath sounds equal bilaterally. No accessory muscle use. ABDOMEN/GI: Abdomen soft, non-tender. Fundus: Firm, non-tender at umbilicus. GENITOURINARY: Light to moderate bleeding. EXTREMITIES: No cyanosis or edema, non-tender, without signs of DVT. Medications and IVs Current Medications Medications (Trade) Dose Ordered Sig/Freddy Route Start Time Stop Time Status Last Admin (NS Flush) 2 ml BID IV FLUSH 07/28/16 21:00 (NS Flush) 2 ml UNSCH PRN IV FLUSH 07/28/16 17:30 (Tylenol) 650 mg Q4H PRN PO 07/28/16 17:30 07/29/16 22:49 (Motrin) 600 mg Q6H PRN PO 07/28/16 17:30 07/28/16 18:50 (Americaine 20% Top Spr) 1 spray Q4H PRN TOPICAL 07/28/16 17:30 (Tucks Pads) 1 applic QID PRN TOPICAL 07/28/16 17:30 (Jennifer-Colace) 2 tab Q12H PRN PO 07/28/16 17:30 (Mag-Al Plus Susp Liq) 15 ml Q8H PRN PO 07/28/16 17:30 (Zofran Odt) 4 mg Q6H PRN PO 07/28/16 17:30 Assessment/Plan Problem List: (1) Term delivered vaginally, current hospitalization (2) HSV-2 infection complicating Plan: No current outbreaks No prophylaxis given this (3) Dental caries (4) History of asthma Plan: No use of albuterol in over 1 year Will monitor Assessment and Plan 20 y/o female who is PPD# 2 s/p . -Continue routine care. -Percocet and Motrin PRN pain. -Encouraged OOB. Advised pelvic rest for 6 wks. -Will need a f/u appt. within 6 wks. -Re: ctrl, she would like Mirena versus Nexblanon to be determined in 6 wk with OB -D/c today. wdw OB attending Discharge Planning Discharge plan for today Anup Honeycutt MD R2 Jul 30, 2016 07:39
[2016-07-30] MEDS ORDERED: SENN1TAB PO (07:40)
[2016-07-30] MEDS ORDERED: IBUP-232 PO (07:40)
--- NOTE | 2016-07-30 07:40 | HHI.DCPOC ---
Discharge Care Plan Diagnosis: (1) Term delivered vaginally, current hospitalization Report Symptoms to Your Doctor -Temperature above 100.5 degrees -Redness, of incision or excessive or foul smelling drainage -Unusual pain or calf pain -Increased vaginal bleeding -Painful or difficulty urinating -Feelings of extreme sadness or anxiety after 2 weeks Goals to Promote Your Health * To prevent worsening of your condition and complications * To maintain your health at the optimal level Directions to Meet Your Goals Take your medications as prescribed Follow your dietary instruction Follow activity as directed Ensure plenty of rest for recovery Drink fluids for hydration Keep your appointments as scheduled Take your immunizations and boosters as scheduled If your symptoms worsen call your PCP, if no PCP go to Urgent Care Center or Emergency Room Smoking is Dangerous to Your Health. Avoid second hand smoke Call the 24-hour crisis hotline for domestic abuse at Anup Honeycutt MD R2 Jul 30, 2016 07:40
[2016-07-30 08:50] VITALS: BP 107/60; PULSE 71; RESP 16; TEMP 98.1
[2016-07-30] MEDS: IBUPROFEN 600 MG TAB PO PRN (11:58)
== END 2016-07-30 12:48 | disposition home or self-care (01) | DRG 774 ==
LOC: HOBED 08:26 → H2EB 08:49 → H1EA 21:30
PROVIDERS: ADMIT Obstetrics & Gynecology; ATTEND Obstetrics & Gynecology
PROC: 10E0XZZ Delivery of Products of Conception, External Approach (ICD-10-PCS; principal; 2016-07-28)
PROC: 3E0R3CZ (ICD-10-PCS; 2016-07-28)
PROC: 00HU33Z Insertion of Infusion Device into Spinal Canal, Percutaneous Approach (ICD-10-PCS; 2016-07-28)
PROC: 3E033VJ Introduction of Other Hormone into Peripheral Vein, Percutaneous Approach (ICD-10-PCS; 2016-07-28)
DX: O42.92 Full-term premature rupture of membranes, unspecified as to length of time between rupture and onset of labor (principal); O98.32 Other infections with a predominantly sexual mode of transmission complicating childbirth; Z37.0 Single live birth; O36.8130 Decreased fetal movements, third trimester, not applicable or unspecified; O69.81X0 Labor and delivery complicated by cord around neck, without compression, not applicable or unspecified; A60.00 Herpesviral infection of urogenital system, unspecified; O99.52 Diseases of the respiratory system complicating childbirth; J45.909 Unspecified asthma, uncomplicated; K02.9 Dental caries, unspecified; Z3A.37 37 weeks gestation of pregnancy
CPT/HCPCS: 59025; 81001; 84112; 85025; 86077; 86850; 86870; 86900; 86901; 86920; 86922; 90707; 90715; J2590; J7120